=== PATIENT | female | born 1950 | race Hispanic/Latino ===

== ENCOUNTER → 2017-05-20 | Outpatient (CLI) | payer OTHER ==
[~2017-05-20] MED LIST: ALENDRONATE SOD70 MG PO; ALPRAZOLAM ODT1 MG PO; COUMADIN2.5 MG PO; DEXILANT60 MG PO; DIOVAN160 MG PO; HYDROCODON-ACE1 EAC9 PO; LEVOTHYROXINE100 MCG PO; METOPROLOL SUCC50 MG PO; PREDNISONE10 MG PO; SIMVASTATIN20 MG PO; ULTRAM50 MG PO
[2017-05-30 11:40] LABS: PROTHROMBIN TIME > 120.0 seconds (11.9-14.5)
== END ==
LOC: NPA 12:00
PROVIDERS: ATTEND Internal Medicine Hematology & Oncology
DX: D68.9 Coagulation defect, unspecified (principal)
CPT/HCPCS: 36415; 85610

== ENCOUNTER → 2017-05-22 | Outpatient (CLI) | payer OTHER, MEDICARE | LOC: NPA 18:00 | DX: R69 Illness, unspecified (principal) ==

== ENCOUNTER → 2017-05-24 | Outpatient (CLI) | payer OTHER ==
[2017-05-30 11:36] LABS: INR 1.36; PROTHROMBIN TIME 17.5 seconds (11.9-14.5)
== END ==
LOC: NPA 13:00
PROVIDERS: ATTEND Internal Medicine Hematology & Oncology
DX: R69 Illness, unspecified (principal)
CPT/HCPCS: 36415; 85610

== ENCOUNTER → 2017-05-29 | Outpatient (CLI) | payer MEDICARE, OTHER ==
[2017-05-29 17:36] LABS: INR 1.17; PROTHROMBIN TIME 15.5 seconds (11.9-14.5)
== END ==
LOC: NPA 09:00
PROVIDERS: ATTEND Internal Medicine Hematology & Oncology
DX: R69 Illness, unspecified (principal)
CPT/HCPCS: 36415; 85610

== ENCOUNTER → 2017-06-03 | Outpatient (CLI) | payer OTHER ==
[2017-06-04 11:28] LABS: INR 1.3; PROTHROMBIN TIME 16.9 seconds (11.9-14.5)
[2017-06-05 19:00] LABS: INR 1.53; PROTHROMBIN TIME 19.2 seconds (11.9-14.5)
== END ==
LOC: NPA 09:00
PROVIDERS: ATTEND Internal Medicine Hematology & Oncology
DX: Z02.89 Encounter for other administrative examinations (principal)
CPT/HCPCS: 36415; 85610

== ENCOUNTER → 2017-06-05 | Outpatient (CLI) | payer OTHER | LOC: NPA 09:00 | PROVIDERS: ATTEND Internal Medicine Hematology & Oncology | DX: Z02.89 Encounter for other administrative examinations (principal) ==

== ENCOUNTER → 2017-06-09 | Outpatient (CLI) | payer OTHER ==
[2017-06-10 16:36] LABS: INR 4.28
[2017-06-10 16:43] LABS: PROTHROMBIN TIME 43.4 seconds (11.9-14.5)
== END ==
LOC: NPA 12:30
PROVIDERS: ATTEND Internal Medicine Hematology & Oncology
DX: Z02.89 Encounter for other administrative examinations (principal)
CPT/HCPCS: 36415; 85610